=== PATIENT | male | born 1965 | race Two or more races ===

== ENCOUNTER 2020-10-21 16:12 | Emergency (ER) | payer OTHER ==
[~2020-10-21] VITALS: Ht 170.2 cm; Wt 65.8 kg
[~2020-10-21 16:12] MED LIST: METHOTREXATE2.5 MG; SULFASALAZINE500 MG
[2020-10-21] MEDS ORDERED: ATORVASTATIN CA40 MG PO (16:23)
[2020-10-21] MEDS ORDERED: ST. JOSEPH ASPI81 M2 PO (16:23)
[2020-10-21] MEDS ORDERED: NEURONTIN300 MG PO (16:24)
[2020-10-21] MEDS ORDERED: ISORDIL10 MG PO (16:24)
[2020-10-21] MEDS ORDERED: NITROGLYCERIN0.4 MG SL (16:24)
[2020-10-21] MEDS ORDERED: BISOPROLOL FUMAR5 MG PO (16:24)
== END 2020-10-21 22:26 | disposition home or self-care (01) ==
LOC: ER 16:12 → CPU-OBS 17:34 → ER 17:34
DX: R07.89 Other chest pain (principal); Z20.822 Contact with and (suspected) exposure to COVID-19
CPT/HCPCS: G0378; G0379; 93005